=== PATIENT | female | born 1965 | race Caucasian/White ===

== ENCOUNTER 2020-04-02 14:11 | Emergency (ER) | payer BC, SELFPAY ==
--- NOTE | 2020-04-02 14:28 | ED.EAR ---
HPI - Ear Problem General Chief complaint: Skin/Abscess/Foreign Body Stated complaint: lump on side of face Time Seen by Provider: 04/02/20 14:28 Source: patient and RN notes reviewed History of Present Illness HPI Narrative: Patient is a 54-year-old female who presents the urgent care with complaints of a painful lump anterior to the left ear. Patient states that she noticed it this morning. States that last night she did have some pain in the region but was assuming it was jaw pain related to sinus drainage. Patient states that she does have chronic sinus issues and takes daily Claritin. Patient denies of any increase in sinus issues, fever, nausea, vomiting, Covid contact. Denies of any left ear pain. Patient has not taken anything [id number] for her discomfort. No other acute complaints. No acute distress noted. Patient aware of the plan of care. Some parts of this dictation were generated by voice recognition software and may contain typographical and/or grammatical inaccuracies. Related Data Home Medications Medication Instructions Recorded Confirmed dupilumab 300 mg/2 mL subcutaneous 300 mg SUBCUT WEEKLY ml 01/22/20 01/22/20 pen injector spironolactone 50 mg tablet 50 mg PO DAILY 01/22/20 01/22/20 Allergies Allergy/AdvReac Type Severity Reaction Status Date / Time clobetasol Allergy Intermediate Rash Verified 01/22/20 15:42 adhesive Allergy Unknown Unknown Verified 01/22/20 15:42 adhesive tape Allergy Unknown Unknown Verified 01/22/20 15:42 latex Allergy Unknown Unknown Verified 01/22/20 15:42 NKFA Allergy Unknown Unknown Uncoded 01/22/20 15:42 Review of Systems Review of Systems: Narrative: CONSTITUTIONAL: Denies fever, chills, or sweats. EYES: Denies visual changes, redness, or discharge. ENT: Denies rhinorrhea, congestion, sore throat, or otalgia. Reports of a painful lump in front of the left ear CARDIOVASCULAR: Denies chest pain, palpitations, or edema. RESPIRATORY: Denies cough or dyspnea. GASTROINTESTINAL: Denies abdominal pain, nausea, vomiting, or diarrhea. GENITOURINARY: Denies dysuria or hematuria. SKIN: Denies rash or itching. MUSCULOSKELETAL: Denies back pain, joint pain, or myalgia. NEUROLOGIC: Denies headache, numbness, or weakness. All other systems reviewed are negative, except as documented in HPI. [facility] Past Medical History Medical History Acne vulgaris Combined hyperlipidemia Insomnia Family History Family History Mother Hypertension Family history of cardiovascular disease Family history of chronic obstructive pulmonary disease Grandparent Family history of cardiovascular disease Cerebrovascular accident, Onset Age: 91 Family history of Parkinson's disease Father Family history of multiple sclerosis Mother Hypertension Patient's mother is in good health Social History Social History Smoking status: Former smoker (15 year pack history, stopped smoking 16 years ago. ) Smoking end date: 03/29/02 Alcohol intake: current Comments At the time of my signature, I reviewed and agree with the nursing past medical, surgical, social, and family history. There is no relevant family history pertinent to the patient complaint. Exam Narrative: Exam Narrative: GENERAL: This is a well-nourished, well-developed patient, in no apparent distress. HEAD: normocephalic, atraumatic. EYES: PERRL. Sclera clear/white. Vision is grossly intact. EARS: External ears normal, auditory canals clear and without drainage, TMs normal without perforation. Hearing grossly intact. Moderate tenderness and mild left preauricular lymph node edema without erythema NOSE: External nose normal with no obvious nasal discharge, nares without redness, no rhinorrhea. THROAT: Mucous membranes moist, posterior pharynx clear. Mild postnasal drainag
[2020-04-02 14:32] VITALS: BP 130/74; PULSE 86; RESP 20; TEMP 37.3; O2SAT 99
== END 2020-04-02 15:08 | disposition home or self-care (01) ==
PROVIDERS: Emergency Provider Nurse Practitioner Family; PCP Family Medicine
DX: R59.1 Generalized enlarged lymph nodes (principal); Z87.891 Personal history of nicotine dependence; E78.2 Mixed hyperlipidemia
CPT/HCPCS: 99212; G0463

== ENCOUNTER → 2021-10-23 14:42 | Outpatient (CLI) | payer BC, SELFPAY ==
--- NOTE | ~2021-10-23 | MR_ITS ---
EXAMINATION: MR shoulder LT wo con DATE: 10/23/2021 15:17 INDICATION: Left shoulder pain TECHNIQUE: Magnetic resonance imaging (MRI) of the left shoulder was performed without intravenous co ntrast. Sequences included axial PD-weighted FS FSE, coronal oblique PD-weighted FS FSE, coronal obli que T2-weighted FS FSE, sagittal PD-weighted FS FSE, and sagittal T1-weighted SE. COMPARISON: None. FINDINGS: Coracoacromial arch: The acromion undersurface is curved in morphology (type II). The coracoacromial ligament is normal. M inimal acromioclavicular osteoarthritis. Rotator cuff: Mild tendinopathy of the anterior supraspinatus tendon without tear. The infraspinatus, teres minor a nd subscapularis tendons are normal. Normal rotator cuff muscle bulk and signal. Biceps tendon, glenoid labrum and glenohumeral cartilage: Long head of the biceps tendon is normal. Runnells complex with absent anterosuperior glenoid labrum an d thickened cordlike middle glenohumeral ligament. Glenohumeral cartilage is normal. Fluid: Physiologic amount of fluid in the glenohumeral joint and biceps tendon sheath. No loose osteochondr al bodies. Mild increased fluid signal in the subacromial/subdeltoid bursa consistent with minimal bu rsitis. Bones: Normal marrow signal with no edema, fracture or abnormal marrow replacing process. There is thickenin g and mild increased signal in the rotator cuff interval on the expected region of the biceps frances sling suggesting partial tear. IMPRESSION: 1. Mild supraspinatus tendinopathy without discrete tear. 2. Thickened soft tissue with mild increased signal at the rotator cuff interval suggesting partial t ear of the biceps frances sling. Reviewed, dictated and finalized at location A. IMPRESSION: 1. Mild supraspinatus tendinopathy without discrete tear. 2. Thickened soft tissue with mild increased signal at the rotator cuff interva l suggesting partial tear of the biceps frances sling.
== END ==
PROVIDERS: PCP Family Medicine; Visit Provider Nurse Practitioner
DX: M25.512 Pain in left shoulder (principal)
CPT/HCPCS: 73221

== ENCOUNTER 2022-06-21 08:22 | Emergency (ER) | payer BC, SELFPAY ==
[2022-06-21 08:40] VITALS: BP 139/67; PULSE 93; RESP 16; TEMP 37.3; O2SAT 100
--- NOTE | 2022-06-21 08:49 | ED.URI ---
HPI - URI/Sore Throat General Chief Complaint: Upper Respiratory Infection Stated Complaint: Congestion,Sore Throat,Cough Time Seen by Provider: 06/21/22 08:35 Source: patient Mode of arrival: ambulatory Limitations: no limitations History of Present Illness HPI Narrative: Patient is a 57-year-old female that presents with throat itchiness that started on Wednesday, followed by congestion, cough, headache. States today her throat is actually sore and hurts to swallow. She has been taking DayQuil and NyQuil for the last 2 days. Reports nothing is helping her symptoms. Related Data Home Medications Medication Instructions Recorded Confirmed spironolactone 50 mg tablet 50 mg PO DAILY 01/22/20 06/02/22 cyclosporine 0.05 % eye drops 1 drp EACH EYE Q12H 11/25/20 06/02/22 (Restasis MultiDose) loratadine 10 mg tablet (Claritin) 10 mg PO DAILY 11/25/20 06/02/22 melatonin 10 mg capsule 10 mg PO QHS 11/25/20 06/02/22 dupilumab 300 mg/2 mL subcutaneous 300 mg subcut .biweekly 11/24/21 06/02/22 pen injector (Dupixent) Allergies Allergy/AdvReac Type Severity Reaction Status Date / Time adhesive AdvReac Mild Rash Verified 06/21/22 08:26 adhesive tape AdvReac Mild Rash Verified 06/21/22 08:26 clobetasol AdvReac Mild Rash Verified 06/21/22 08:26 latex AdvReac Mild Rash Verified 06/21/22 08:26 NKFA Allergy Unknown Unknown Uncoded 06/01/22 15:25 Review of Systems Review of Systems: All systems reviewed & are unremarkable except as noted in HPI and below Constitutional: Constitutional: Denies body ache(s), Denies fever(s), Reports headache(s), Denies malaise and Denies weakness Eyes: Eyes: Denies loss of vision ENT: Denies otalgia, Reports headache(s), Reports nasal congestion, Reports nasal discharge, Denies sinus pain and Reports sore throat Cardiovascular: Cardiovascular: Denies chest pain, Denies irregular heart rhythm and Denies dyspnea Respiratory: Respiratory: Reports cough and Denies dyspnea Gastrointestinal: Gastrointestinal: Denies abdominal pain, Denies melena, Denies hematochezia, Denies diarrhea, Denies nausea and Denies vomiting Musculoskeletal: Musculoskeletal: Denies back pain, Denies myalgias and Denies arthralgias Integumentary/Breasts: Skin/Breast: Denies pruritus and Denies rash Neurologic: Denies headache(s), Denies loss of vision and Denies weakness Psychiatric: Psychiatric: Reports no additional psychiatric complaints PMFSH Past Medical History Medical History Acne vulgaris Arthritis Atopic dermatitis Combined hyperlipidemia Insomnia Prediabetes Sleep disorder Vomiting Wears glasses Surgical History Surgical History History of History of dilation and curettage History of removal of skin mole Family History Family History Mother Family history of cardiovascular disease Family history of chronic obstructive pulmonary disease Arthritis High cholesterol Grandparent Family history of cardiovascular disease Cerebrovascular accident, Onset Age: 91 Family history of Parkinson's disease Father Family history of multiple sclerosis Mother Hypertension Patient's mother is in good health Sibling High cholesterol Other Family history of Parkinson's disease Alzheimer disease Social History Social History Smoking packs per day: 1 Smoking cigarettes per day: 20.0 Years smoked: 10 Smoking pack-years: 10.00 Smoking status: Former smoker Smoking end date: 03/29/03 Alcohol intake: current Drinks per week: 1 Substance use: never Substance use type: does not use Lack of Transportation: No Lack of Food: Never True Current Housing: I Have Housing Concerned About Future Housing: No Difficulty Paying Gas/Electric Bills: No Difficulty Pay
== END 2022-06-21 09:02 | disposition home or self-care (01) ==
PROVIDERS: Emergency Provider Nurse Practitioner Family; PCP Family Medicine
DX: J06.9 Acute upper respiratory infection, unspecified (principal); Z87.891 Personal history of nicotine dependence
CPT/HCPCS: 87081; 87880; 99213; G0463

== ENCOUNTER 2022-06-27 11:34 | Emergency (ER) | payer BC, SELFPAY ==
--- NOTE | ~2022-06-27 | XR_ITS ---
EXAMINATION: XR foot RT min 3V DATE: 06/27/2022 11:52 INDICATION: Lateral right foot pain. TECHNIQUE: 4 views of right foot were obtained. COMPARISON: Right foot radiographs 05/30/2011 FINDINGS: Bone alignment normal. There is a nondisplaced fracture of medial base of fifth proximal ph alanx. There is mild osteoarthritis of first metatarsophalangeal joint and some of the interphalangea l and midfoot joints. There is an enthesophyte at plantar aspect of calcaneal tuberosity. IMPRESSION: 1. Nondisplaced fracture of medial base of fifth proximal phalanx. Reviewed, dictated and finalized at location A.
[2022-06-27 11:42] VITALS: BP 152/83; PULSE 87; RESP 16; TEMP 37; O2SAT 100
--- NOTE | 2022-06-27 11:51 | ED.LOWEXIN ---
HPI - Extremity Injury (Lower) General Chief Complaint: Extremity Injury, Lower Stated Complaint: rt foot injury Time Seen by Provider: 06/27/22 11:45 Source: patient Mode of arrival: ambulatory Limitations: no limitations History of Present Illness HPI Narrative: aTmmy is a 57-year-old female patient presenting to clinic today with complaints of right 5th toe pain/foot pain after injury this morning. She reports that she accidentally kicked the bed frame and felt a pop. Has pain to the 5th toe and metatarsal. Mild swelling noted Related Data Home Medications Medication Instructions Recorded Confirmed spironolactone 50 mg tablet 50 mg PO DAILY 01/22/20 06/27/22 cyclosporine 0.05 % eye drops 1 drp EACH EYE Q12H 11/25/20 06/27/22 (Restasis MultiDose) loratadine 10 mg tablet (Claritin) 10 mg PO DAILY 11/25/20 06/27/22 melatonin 10 mg capsule 10 mg PO QHS 11/25/20 06/27/22 dupilumab 300 mg/2 mL subcutaneous 300 mg subcut .biweekly 11/24/21 06/27/22 pen injector (Dupixent) Allergies Allergy/AdvReac Type Severity Reaction Status Date / Time adhesive AdvReac Mild Rash Verified 06/27/22 11:45 adhesive tape AdvReac Mild Rash Verified 06/27/22 11:45 clobetasol AdvReac Mild Rash Verified 06/27/22 11:45 latex AdvReac Mild Rash Verified 06/27/22 11:45 Review of Systems Review of Systems: Pertinent positives per HPI. Patient denies any fever, chills, rash, headache, visual changes, dizziness, cough, runny nose, sore throat, shortness of breath, chest pain, palpitations, nausea, vomiting, diarrhea, constipation, abdominal pain, or any urinary issues. [facility] Past Medical History Medical History Acne vulgaris Arthritis Atopic dermatitis Combined hyperlipidemia Insomnia Prediabetes Sleep disorder Vomiting Wears glasses Surgical History Surgical History History of History of dilation and curettage History of removal of skin mole Family History Family History Mother Family history of cardiovascular disease Family history of chronic obstructive pulmonary disease Arthritis High cholesterol Grandparent Family history of cardiovascular disease Cerebrovascular accident, Onset Age: 91 Family history of Parkinson's disease Father Family history of multiple sclerosis Mother Hypertension Patient's mother is in good health Sibling High cholesterol Other Family history of Parkinson's disease Alzheimer disease Social History Social History Smoking packs per day: 1 Smoking cigarettes per day: 20.0 Years smoked: 10 Smoking pack-years: 10.00 Smoking status: Former smoker Smoking end date: 03/29/03 Alcohol intake: current Drinks per week: 1 Substance use: never Substance use type: does not use Lack of Transportation: No Lack of Food: Never True Current Housing: I Have Housing Concerned About Future Housing: No Difficulty Paying Gas/Electric Bills: No Difficulty Paying for Meds: No Currently Unemployed: No Education: Master's Degree or Higher Difficulty w/ Childcare or Family Care: No Living arrangements: with family Additional living arrangements comments: With Son every other week Occupation/Education: occupation Additional occupation/education comments: Emergency [employer] Gender identity (if verbalized by the patient): Female Sexual Orientation (if Verbalized by the Patient): Straight or Heterosexual Agree to blood products: Yes Comments At the time of my signature, I reviewed and agree with the nursing past medical, surgical, social, and family history. There is no relevant family history pertinent to the patient complaint. Exam Narrative: General: Well-developed, well kenneth
== END 2022-06-27 12:27 | disposition home or self-care (01) ==
PROVIDERS: Emergency Provider Nurse Practitioner Family
DX: S92.514A Nondisplaced fracture of proximal phalanx of right lesser toe(s), initial encounter for closed fracture (principal); Z87.891 Personal history of nicotine dependence; W22.03XA Walked into furniture, initial encounter
CPT/HCPCS: 73630; 99214; G0463

== ENCOUNTER → 2022-07-13 16:12 | Outpatient (CLI) | payer BC, SELFPAY ==
--- NOTE | ~2022-07-13 | MM_ITS ---
EXAMINATION: MM screening [facility] BI w [facility] HISTORY: Screening mammogram TECHNIQUE: Craniocaudal and mediolateral oblique 3-D tomosynthesis images were obtained and synthetic 2-D images were generated. CAD analysis was submitted and interpreted. COMPARISON: 03/25/2018, 08/13/2014, 10/22/2012 BREAST PARENCHYMAL COMPOSITION: There are scattered areas of fibroglandular density. FINDINGS: Chronic, benign bilateral breast calcifications are noted. No suspicious mass, calcificatio n, or architectural distortion are identified in either breast to suggest malignancy. There has been no suspicious interval change. IMPRESSION: 1. No mammographic evidence of malignancy. 2. Recommend routine screening mammography in one year. BI-RADS Category 2: Benign finding(s). Reviewed, dictated and finalized at location A.
== END ==
PROVIDERS: PCP Family Medicine; Visit Provider Nurse Practitioner Obstetrics & Gynecology
DX: Z12.31 Encounter for screening mammogram for malignant neoplasm of breast (principal)
CPT/HCPCS: 77063; 77067

== ENCOUNTER 2022-12-06 11:55 | Emergency (ER) | payer BC, SELFPAY ==
--- NOTE | ~2022-12-06 | CT_ITS ---
EXAMINATION: CT abdomen pelvis w con DATE: 12/06/2022 13:09 INDICATION: Lower abdominal pain TECHNIQUE: Computed tomography (CT) of the abdomen and pelvis was performed with 100 CC Omnipaque 350 intravenous contrast. Automated exposure control and iterative reconstruction technique were employe d. Exam dose: 787.11 mGy-cm total exam DLP. COMPARISON: None. FINDINGS: The lung bases are clear. Normal heart size. No pericardial or pleural effusion. The liver, gallbladder, bile ducts, spleen, pancreas and pancreatic duct appear normal. Normal morphology of the adrenal glands. No renal mass lesion. No urinary tract calculus or hydroureteronephrosis. The urinary bladder, uterus and adnexal areas are unremarkable. Normal caliber of the abdominal aorta. No intraperitoneal or retroperitoneal or pelvic mass lesion or adenopathy or ascites. There is soft tissue thickening of the mid sigmoid colon with mild pericolic fat stranding, suggestin g uncomplicated diverticulitis without abscess. There are multiple diverticula of left and right colo n, most numerous on the left. Normal appendix. Small fat-containing umbilical hernia. No suspicious osteolytic or osteoblastic lesions. IMPRESSION: Mild sigmoid diverticulitis Diverticulosis of left and right colon Normal appendix Reviewed, dictated and finalized at Location [facility]. Reviewed, dictated and finalized at location A.
[2022-12-06 11:56] VITALS: BP 140/85; PULSE 94; RESP 16; TEMP 36.8; O2SAT 99
--- NOTE | 2022-12-06 12:08 | ED.ABDPAIN ---
HPI - Abdominal Pain General Chief Complaint: Abdominal Pain Stated Complaint: abd pain Time Seen by Provider: 12/06/22 12:08 Source: patient Mode of arrival: ambulatory Limitations: no limitations History of Present Illness HPI narrative: 57 years old white female drove herself to the emergency room because of suprapubic pain started yesterday afternoon, constant, denying any aggravating or relieving factors. She denies any fever, chills, nausea, vomiting, diarrhea, constipation or urinary symptoms. History of section, and hyperlipidemia. Related Data Home Medications Medication Instructions Recorded Confirmed spironolactone 50 mg tablet 50 mg PO DAILY 01/22/20 06/27/22 cyclosporine 0.05 % eye drops 1 drp EACH EYE Q12H 11/25/20 06/27/22 (Restasis MultiDose) loratadine 10 mg tablet (Claritin) 10 mg PO DAILY 11/25/20 06/27/22 melatonin 10 mg capsule 10 mg PO QHS 11/25/20 06/27/22 dupilumab 300 mg/2 mL subcutaneous 300 mg subcut .biweekly 11/24/21 06/27/22 pen injector (Dupixent) Allergies Allergy/AdvReac Type Severity Reaction Status Date / Time adhesive AdvReac Mild Rash Verified 12/06/22 11:58 adhesive tape AdvReac Mild Rash Verified 12/06/22 11:58 clobetasol AdvReac Mild Rash Verified 12/06/22 11:58 latex AdvReac Mild Rash Verified 12/06/22 11:58 Review of Systems Review of Systems: All systems reviewed & are unremarkable except as noted in HPI and below PMFSH Past Medical History Medical History Acne vulgaris Arthritis Atopic dermatitis Combined hyperlipidemia Insomnia Prediabetes Sleep disorder Vomiting Wears glasses Surgical History Surgical History History of History of dilation and curettage History of removal of skin mole Family History Family History Mother Family history of cardiovascular disease Family history of chronic obstructive pulmonary disease Arthritis High cholesterol Grandparent Family history of cardiovascular disease Cerebrovascular accident, Onset Age: 91 Family history of Parkinson's disease Father Family history of multiple sclerosis Mother Hypertension Patient's mother is in good health Sibling High cholesterol Other Family history of Parkinson's disease Alzheimer disease Social History Social History Smoking packs per day: 1 Smoking cigarettes per day: 20.0 Years smoked: 10 Smoking pack-years: 10.00 Smoking status: Former smoker Smoking end date: 03/29/03 Alcohol intake: current Drinks per week: 1 Substance use: never Substance use type: does not use Lack of Transportation: No Lack of Food: Never True Current Housing: I Have Housing Concerned About Future Housing: No Difficulty Paying Gas/Electric Bills: No Difficulty Paying for Meds: No Currently Unemployed: No Education: Master's Degree or Higher Difficulty w/ Childcare or Family Care: No Living arrangements: with family Additional living arrangements comments: With Son every other week Occupation/Education: occupation 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[employer] Gender identity (if verbalized by the patient): Female Sexual Orientation (if Verbalized by the Patient): Straight or Heterosexual Agree to blood products: Yes Exam Narrative: General appearance: Well-developed, well-nourished Skin: Normal color Head: Normocephalic, nontraumatic Eyes: Clear conjunctiva ENT: Oropharynx normal, ears normal, nose normal Neck: Supple, nontender Chest and respiratory: Airway patent, no respiratory distress, no accessory muscle use Heart: Regular rate/rhythm Abdomen: Soft, mild diffuse tenderness lower abdomen mainly at the left lower quadrant, no organomegaly, quiet bowel sounds Vas
[2022-12-06 12:30] LABS: Basophils Percent Auto 0.3 % (0.2-1.2); Eosinophils Absolute Auto 0.1 K/mm3 (0-0.3); Eosinophils Percent Auto 0.6 % (0-4.4); Hematocrit 43.3 % (37.0-47.0); Hemoglobin 14.5 g/dL (12.0-15.0); Immature Granulocyte Absolute 0.03 K/mm3 (0.00-0.031); Immature Granulocyte Percent A 0.3 % (0-0.5); Lymphocytes Absolute Auto 0.85 K/mm3 (0.9-3.2); Lymphocytes Percent Auto 7.4 % (18.3-44.2); Mean Corpuscular HGB Conc 33.5 g/dl (32-36); Mean Corpuscular Hemoglobin 30.3 pg (26-34); Mean Corpuscular Volume 90.4 fl (80-100); Mean Platelet Volume 9.4 fl (7.4-10.4); Monocytes Absolute Auto 0.9 K/mm3 (0.1-0.6); Neutrophils Absolute Auto 9.6 K/mm3 (1.3-6.7); Neutrophils Percent Auto 83.4 % (45.5-73.1); Platelet Count Result 306 k/mm3 (150-375); Red Blood Count 4.79 M/mm3 (4.2-5.4); Red Cell Distribution Width 12.5 % (11.5-14.5); White Blood Count 11.5 K/mm3 (4.5-10.0)
[2022-12-06 12:31] LABS: Appearance Urine Clear (Clear); Bilirubin Urine Negative (Negative); Blood Urine Negative (Negative); Color Urine Yellow (Yellow); Glucose Urine UA Negative (Negative); Ketones Urine Negative (Negative); Leukocyte Esterase Ur Negative LEU/UL (Negative); Nitrate Urine Negative (Negative); Protein Urine Negative (Negative); Specific Grav Ur 1.006 (1.001-1.035); Urobilinogen Urine 0.2 mg/dL (<2.0)
[2022-12-06 12:42] LABS: Alanine Aminotransferase 30 U/L (6-35); Albumin Level 4.6 g/dL (3.5-5.1); Alkaline Phosphatase 90 U/L (38-126); Anion Gap 7 mmol/L (8-16); Aspartate Amino Transferase 30 U/L (14-36); Bilirubin,Total 0.6 mg/dL (0.2-1.3); Blood Urea Nitrogen 11 mg/dL (7-17); Carbon Dioxide 30 mmol/L (22-30); Chloride 101 mmol/L (98-107); Estimated CRCL calculation 66 ml/min; Estimated Glomerular Filt Rate > 60; Glucose 130 mg/dL (65-110); Lipase 132 U/L (23-300); Potassium 4.2 mmol/L (3.4-5.0); Sodium 138 mmol/L (137-145)
[2022-12-06 12:44] LABS: Add Urine Microscopic? NO
[2022-12-06] MEDS: SODIUM CHLORIDE 0.9% IV 1,000 ML 999 ML IV CONT (12:45)
[2022-12-06] MEDS: ONDANSETRON INJ 4 MG/2 ML VIAL IV PUSH (12:47)
[2022-12-06 12:53] VITALS: BP 144/81; PULSE 88; RESP 12; O2SAT 99
--- NOTE | 2022-12-06 12:59 | PC.NURSE ---
pt taken to CT at this time
[2022-12-06 14:25] VITALS: BP 135/86; PULSE 94; RESP 12; O2SAT 100
== END 2022-12-06 14:30 | disposition home or self-care (01) ==
PROVIDERS: Emergency Provider Emergency Medicine; PCP Family Medicine
DX: K57.32 Diverticulitis of large intestine without perforation or abscess without bleeding (principal); M19.90 Unspecified osteoarthritis, unspecified site; E78.5 Hyperlipidemia, unspecified
CPT/HCPCS: 36415; 74177; 80053; 81003; 81025; 83690; 85025; 96361; 96374; 99284; J2405; J7030; Q9967

== ENCOUNTER 2023-02-05 02:07 | Day surgery (SDC) | payer BC, SELFPAY ==
[2023-01-28 09:31] VITALS: BMI 35.3
--- NOTE | 2023-02-03 11:53 | SUR.PREOP ---
Patient called regarding upcoming procedure. Message left on patient's voicemail regarding preop instructions, appointment times, and procedure prep.
[2023-02-05 10:21] VITALS: BP 130/87; PULSE 81; RESP 18; TEMP 36.3; O2SAT 81; BMI 34.9
[2023-02-05] MEDS: LACTATED RINGERS 1,000 ML 150 ML IV CONT (10:43)
--- NOTE | 2023-02-05 11:23 | WPDANESEPPF ---
Anes - Initial Pre Proc Eval Procedure: Operation Date: 02/05/23 11:30 Proposed Procedures p Colonoscopy - Luis M Mckeon MD Date/Time: 02/05/23 11:23 Surgeon: Luis M Mckeon MD Pre Op Diagnosis: Diverticulitis of large intestine Patient Data Age: 57 Gender: F Height: 1.52 m Weight: 81.3 kg Last Vital Signs Temp 97.4 F L 02/05/23 10:21 Pulse 81 02/05/23 10:21 Resp 18 02/05/23 10:21 BP 130/87 02/05/23 10:21 Pulse Ox 81 L 02/05/23 10:21 O2 Del Method Room Air 02/05/23 10:21 Allergies Allergy/AdvReac Type Severity Reaction Status Date / Time adhesive Allergy Mild Rash Verified 01/28/23 09:34 adhesive tape Allergy Mild Rash Verified 01/28/23 09:34 clobetasol Allergy Mild Rash Verified 01/28/23 09:34 CIDEX Allergy Intermediate Rash Uncoded 01/28/23 09:38 DECYL-GLUCOSIDE Allergy Intermediate Rash Uncoded 01/28/23 09:35 LINALOOL Allergy Intermediate Rash Uncoded 01/28/23 09:36 TOPICAL STERIODS Allergy Intermediate Rash Uncoded 01/28/23 09:36 Home Medications Medication Instructions Recorded Confirmed Type spironolactone 50 mg tablet 50 mg PO DAILY 01/22/20 01/28/23 History cyclosporine 0.05 % eye drops 1 drp EACH EYE Q12H 11/25/20 01/28/23 History (Restasis MultiDose) loratadine 10 mg tablet (Claritin) 10 mg PO DAILY 11/25/20 01/28/23 History melatonin 10 mg capsule 10 mg PO QHS 11/25/20 01/28/23 History dupilumab 300 mg/2 mL subcutaneous 300 mg subcut .biweekly 11/24/21 01/28/23 History pen injector (Dupixent) zolpidem 12.5 mg tablet,extended 12.5 mg PO QHS insomnia #30 tabs 10/07/22 01/28/23 Rx release,multiphase pravastatin 20 mg tablet 20 mg PO QHS 12/07/22 01/28/23 History clotrimazole-betamethasone 1 See Rx Instructions topical DAILY 01/28/23 01/28/23 History %-0.05 % lotion PRN Itching multivitamin with minerals-folic 1 tablet PO DAILY 01/28/23 01/28/23 History acid 0.4 mg tablet Patient hx anesthesia problems: none Family hx anesthesia problems: none Results Review: All pre-operative results and documents have been reviewed as part of the pre-operative evaluation. [facility] Past Medical History Medical History (Updated 12/30/22 @ 15:37 by Nevaeh Kimble APRN) Acne vulgaris Arthritis Atopic dermatitis Combined hyperlipidemia Diverticulitis Insomnia Leukocytosis Prediabetes Sleep disorder Suprapubic pain Vomiting Wears glasses Surgical History Surgical History History of History of dilation and curettage History of removal of skin mole Family History Family History Mother Family history of cardiovascular disease Family history of chronic obstructive pulmonary disease Arthritis High cholesterol Grandparent Family history of cardiovascular disease Cerebrovascular accident, Onset Age: 91 Family history of Parkinson's disease Father Family history of multiple sclerosis Mother Hypertension Patient's mother is in good health Sibling High cholesterol Other Family history of Parkinson's disease Alzheimer disease Social History Social History Smoking packs per day: 0.75 Smoking cigarettes per day: 15.0 Years smoked: 15 Smoking pack-years: 11.25 Smoking status: Former smoker Tobacco type: cigarettes Smoking end date: 03/29/03 Alcohol intake: current Drinks per week: 1 Alcohol use details: DRINK Substance use: never Substance use type: does not use Lack of Transportation: No Lack of Food: Never True Current Housing: I Have Housing Concerned About Future Housing: No Difficulty Paying Gas/Electric Bills: No Difficulty Paying for Meds: No Currently Unemployed: No Education: Master's Degree or Higher Difficulty w/ Childcare or Family Care: No Living arrangements: with family Additio
--- NOTE | 2023-02-05 11:27 | PM.HPGS ---
History of Present Illness History of Present Illness Consent: Risks, benefits, and alternatives have been discussed and questions answered. Patient agrees to proceed with procedure. Chief complaint: Diverticulitis of large intestine Narrative: Mi Zheng is a 57 year old female here for first colonoscopy, had diverticulitis treated medically Review of Systems Constitutional: Constitutional: Denies headache(s) and Denies weakness Eyes: Eyes: Denies blurry vision ENT: Reports Normal hearing present, Denies headache(s) and Denies neck pain Cardiovascular: Cardiovascular: Denies chest pain and Denies dyspnea Respiratory: Respiratory: Denies dyspnea Gastrointestinal: Gastrointestinal: Reports no additional gastrointestinal complaints Genitourinary: Genitourinary: Denies dysuria Musculoskeletal: Musculoskeletal: Denies neck pain Integumentary/Breasts: Skin/Breast: Denies dry skin Neurologic: Reports Normal hearing present, Denies headache(s) and Denies weakness Psychiatric: Psychiatric: Denies anxiety Endocrine: Endocrine: Denies change in body appearance Hematologic/Lymphatic: Hematologic/Lymphatic: Denies easy bleeding Allergic/Immunologic: Allergic/Immunologic: Denies urticaria PMFSH Past Medical History Medical History (Updated 02/05/23 @ 11:28 by Luis M Mckeon MD) Acne vulgaris Arthritis Atopic dermatitis Combined hyperlipidemia Diverticulitis History of diverticulitis of colon Insomnia Leukocytosis Prediabetes Sleep disorder Suprapubic pain Vomiting Wears glasses Surgical History Surgical History History of History of dilation and curettage History of removal of skin mole Family History Family History Mother Family history of cardiovascular disease Family history of chronic obstructive pulmonary disease Arthritis High cholesterol Grandparent Family history of cardiovascular disease Cerebrovascular accident, Onset Age: 91 Family history of Parkinson's disease Father Family history of multiple sclerosis Mother Hypertension Patient's mother is in good health Sibling High cholesterol Other Family history of Parkinson's disease Alzheimer disease Social History Social History Smoking packs per day: 0.75 Smoking cigarettes per day: 15.0 Years smoked: 15 Smoking pack-years: 11.25 Smoking status: Former smoker Tobacco type: cigarettes Smoking end date: 03/29/03 Alcohol intake: current Drinks per week: 1 Alcohol use details: DRINK Substance use: never Substance use type: does not use Lack of Transportation: No Lack of Food: Never True Current Housing: I Have Housing Concerned About Future Housing: No Difficulty Paying Gas/Electric Bills: No Difficulty Paying for Meds: No Currently Unemployed: No Education: Master's Degree or Higher Difficulty w/ Childcare or Family Care: No Living arrangements: with family Additional living arrangements comments: With Son every other week Occupation/Education: occupation 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 [employer] Gender identity (if verbalized by the patient): Female Sexual Orientation (if Verbalized by the Patient): Straight or Heterosexual Spiritual care concerns: No Agree to blood products: Yes Meds Home Medications and Allergies Home Medications Medication Instructions Recorded Confirmed Type spironolactone 50 mg tablet 50 mg PO DAILY 01/22/20 01/28/23 History cyclosporine 0.05 % eye drops 1 drp EACH EYE Q12H 11/25/20 01/28/23 History (Restasis MultiDose) loratadine 10 mg tablet (Claritin) 10 mg PO DAILY 11/25/20 01/28/23 History melatonin 10 mg capsule 10 mg PO QHS 11/25/20 01/28/23 History dupilumab 300 mg/2 mL subcutan
[2023-02-05 11:50] VITALS: BP 118/55; PULSE 81; RESP 20; O2SAT 100
[2023-02-05 12:00] VITALS: BP 129/59; PULSE 80; RESP 22; O2SAT 100
[2023-02-05 12:10] VITALS: BP 138/62; PULSE 77; RESP 18; O2SAT 100
== END 2023-02-05 12:24 | disposition home or self-care (01) ==
PROVIDERS: PCP Family Medicine; Visit Provider Internal Medicine Gastroenterology
PROC: 0DJD8ZZ Inspection of Lower Intestinal Tract, Via Natural or Artificial Opening Endoscopic (ICD-10-PCS; CPT 45378; principal; 2023-02-05 11:30)
DX: Z09 Encounter for follow-up examination after completed treatment for conditions other than malignant neoplasm (principal); D12.3 Benign neoplasm of transverse colon; K62.1 Rectal polyp; K57.30 Diverticulosis of large intestine without perforation or abscess without bleeding; K64.8 Other hemorrhoids; Z87.19 Personal history of other diseases of the digestive system; E78.2 Mixed hyperlipidemia; Z79.620 Long term (current) use of immunosuppressive biologic; Z87.891 Personal history of nicotine dependence; E66.9 Obesity, unspecified; Z68.35 Body mass index [BMI] 35.0-35.9, adult
CPT/HCPCS: 45385; 88305; J2001; J2704; J7120

== ENCOUNTER 2025-01-11 12:49 | Outpatient (CLI) | payer BC, SELFPAY ==
--- NOTE | ~2025-01-11 | MM_ITS ---
EXAMINATION: MM screening charissa BI w megha HISTORY: Screening TECHNIQUE: Craniocaudal and mediolateral oblique 3-D tomosynthesis images were obtained and synthetic 2-D images were generated. CAD analysis was submitted and interpreted. COMPARISON: 03/25/2015 BREAST PARENCHYMAL COMPOSITION: The breasts are heterogeneously dense, which may obscure small masses. FINDINGS: There is no evidence of suspicious mass, calcification, or architectural distortion to suggest malignancy. There has been no suspicious interval change. IMPRESSION: 1. No mammographic evidence of malignancy. Recommend routine screening mammography in one year. BI-RADS Category 2: Benign finding(s) Reviewed, dictated and finalized at location Q. IMPRESSION: 1. No mammographic evidence of malignancy. Recommend routine screening mammogra phy in one year. BI-RADS Category 2: Benign finding(s)
--- OUTSIDE RECORDS SUMMARY | 2025-01-11 14:24 | XMS_ITS | Encounter Summary ---
Author Organization [employer] Address 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
--- OUTSIDE RECORDS SUMMARY | 2025-01-11 14:24 | XMS_ITS | Clinical Summary ---
Author Organization [facility] Address [address] [place] [id number] Care Team Providers Care Certified Neurodiagnostic Technologist Name Role Phone Celia Cash MD Primary Care Provider Allergies Active Allergy Reactions Criticality Noted Date Comments Benzoyl Peroxide Unknown 08/11/2019 Budesonide Unknown 08/11/2019 Clobetasol Unknown 08/11/2019 Decyl Glucoside Unknown 08/11/2019 Desoximetasone Unknown 08/11/2019 Glutaraldehyde Unknown 08/11/2019 Other Unknown 08/11/2019 Allergy tested: MDBGN; textile dye mix; hydroperoxides of linalool Medications No known medications Active Problems No known active problems Social History Tobacco Use Types Packs/Day Years Used Date Smoking Tobacco: Never Assessed Comments Unknown Sex and Gender Information Value Date Recorded Sex Assigned at Not on file 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
--- OUTSIDE RECORDS SUMMARY | 2025-01-11 14:24 | XMS_ITS | Clinical Summary ---
Author Organization 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
== END 2025-01-11 12:50 | disposition home or self-care (01) ==
LOC: CHSIMG 12:50
PROVIDERS: PCP Family Medicine; Visit Provider Family Medicine
DX: Z12.31 Encounter for screening mammogram for malignant neoplasm of breast (principal)
CPT/HCPCS: 77063; 77067